=== PATIENT | male | born 1985 | race Caucasian/White ===

== ENCOUNTER 2024-06-30 08:28 | Day surgery (SDC) | payer OTHER ==
[2024-06-30] MEDS ORDERED: Propofol 200 MG/20 ML SDV ONE (08:56)
[2024-06-30] MEDS ORDERED: fentaNYL 50 MCG/ML SDV ONE (08:56)
[2024-06-30] MEDS ORDERED: Midazolam 1 MG/ML 2 ML SDV ONE (08:56)
[2024-06-30] MEDS: Lactated Ringers 1,000 ML IV SCH (09:26)
== END 2024-06-30 12:03 | disposition home or self-care (01) ==
LOC: JP.SDS 08:28 → EDSEX 08:30 → JP.SDS 12:03
PROVIDERS: ATTEND Surgery
DX: K64.9 Unspecified hemorrhoids (principal)
CPT/HCPCS: 45398; J2250; J2704; J3010; J7120